=== PATIENT | male | born 1950 | race Caucasian/White ===

== ENCOUNTER 2018-11-24 19:12 | Emergency (ER) | payer OTHER ==
[~2018-11-24] VITALS: Ht 170.2 cm; Wt 74.8 kg
[2018-11-24] MEDS ORDERED: METOPROLOL SUCC25 MG (19:28)
[2018-11-24] MEDS ORDERED: COZAAR50 MG (19:28)
[2018-11-24] MEDS ORDERED: ASPIR 8181 MG (19:29)
[2018-11-24] MEDS ORDERED: ATORVASTATIN CA10 MG (19:29)
[2018-11-24] MEDS ORDERED: GLIMEPIRIDE1 MG (19:29)
[2018-11-24] MEDS ORDERED: JANUMET 50-1,01 EACH (19:29)
[2018-11-24] MEDS ORDERED: OMEGA-31000 MG (19:30)
== END 2018-11-24 22:39 | disposition home or self-care (01) ==
LOC: ER 19:12
DX: L02.212 Cutaneous abscess of back [any part, except buttock and flank] (principal)

== ENCOUNTER → 2019-01-24 | Outpatient (CLI) | payer OTHER ==
[~2019-01-24] MED LIST: ASPIR 8181 MG; ATORVASTATIN CA10 MG; COZAAR50 MG; GLIMEPIRIDE1 MG; JANUMET 50-1,01 EACH; METOPROLOL SUCC25 MG; OMEGA-31000 MG
== END | disposition home or self-care (01) ==
LOC: NUCLEAR 12-21 07:00
DX: D35.1 Benign neoplasm of parathyroid gland (principal)
CPT/HCPCS: 78072; A9500